=== PATIENT | female | born 1960 | race Caucasian/White ===

== ENCOUNTER → 2018-10-09 | Outpatient (CLI) | payer MEDICARE, OTHER | END | disposition home or self-care (01) | LOC: CFH 10:10 | PROVIDERS: ATTEND Nurse Practitioner Family | DX: Z12.31 Encounter for screening mammogram for malignant neoplasm of breast (principal); M16.0 Bilateral primary osteoarthritis of hip; Z85.3 Personal history of malignant neoplasm of breast | CPT/HCPCS: 72192; 77067 ==

== ENCOUNTER 2018-12-28 09:41 | Outpatient (CLI) | payer MEDICARE | END 2018-12-28 23:59 | disposition home or self-care (01) | LOC: CFH 09:41 | PROVIDERS: ATTEND Nurse Practitioner Family | DX: Z86.39 Personal history of other endocrine, nutritional and metabolic disease (principal) | CPT/HCPCS: 70490 ==

== ENCOUNTER → 2019-03-06 | Outpatient (CLI) | payer MEDICARE ==
[~2019-03-06] MED LIST: REGADENOSON 0.4 MG/5 ML SYRINGE ONE
== END | disposition home or self-care (01) ==
LOC: CFH 06:44
PROVIDERS: ATTEND Physician Assistant Medical
DX: I10 Essential (primary) hypertension (principal); Z95.0 Presence of cardiac pacemaker
CPT/HCPCS: 78452; 93017; 93306; A9502; J2785

== ENCOUNTER 2019-06-05 13:17 | Outpatient (CLI) | payer MEDICARE ==
[2019-06-05 14:40] LABS: BASOPHILS # (AUTO) 0.09 x10^3/uL (0-0.1); BASOPHILS % (AUTO) 1 % (0-1); EOSINOPHILS # (AUTO) 0.29 x10^3/uL (0-0.4); EOSINOPHILS % (AUTO) 3 % (1-7); LYMPHOCYTES % (AUTO) 21 % (22-44); MD NO; MEAN CORPUSCULAR HEMOGLOBIN 31.2 pg (27.0-34.8); MEAN CORPUSCULAR HGB CONC 32.5 g/dL (32.4-35.8); MEAN PLATELET VOLUME 9.1 fL (7.4-10.4); MONOCYTES # (AUTO) 0.54 x10^3/uL (0.2-0.8); MONOCYTES % (AUTO) 6 % (2-9); NEUTROPHILS # (AUTO) 6.32 x10^3/uL (1.8-6.8); NEUTROPHILS % (AUTO) 69 % (42-75); PLATELET COUNT 237 x10^3/uL (130-400); RED BLOOD COUNT 4.88 x10^6/uL (3.82-5.3); RED CELL DISTRIBUTION WIDTH 13.2 % (9.6-15.2)
[2019-06-05 14:44] LABS: PROTHROMBIN TIME 10.5 Seconds (9.6-11.5)
[2019-06-05 14:46] LABS: ALBUMIN 3.7 g/dL (3.4-5.0); ANION GAP 6 mmol/L (5-15); CALCIUM 9.2 mg/dL (8.5-10.1); CHLORIDE 107 mmol/L (98-107)
[2019-06-05 14:48] LABS: ALANINE AMINOTRANSFERASE 23 U/L (12-78); ALKALINE PHOSPHATASE 70 U/L (45-117); BILIRUBIN,TOTAL 0.4 mg/dL (0.2-1.0); CREATININE 0.95 mg/dL (0.55-1.02); TOTAL PROTEIN 7.1 g/dL (6.4-8.2)
[2019-06-05 14:50] LABS: HEMOGLOBIN A1C 5.6 % (4.2-6.3)
[2019-06-05] MEDS ORDERED: ROSU40TA PO (16:11)
[2019-06-05] MEDS ORDERED: DABI150C PO (16:11)
[2019-06-05] MEDS ORDERED: VENL75TA PO (16:11)
[2019-06-05] MEDS ORDERED: METO50TA82 PO (16:11)
[2019-06-05] MEDS ORDERED: SERT50TA28 PO (16:11)
[2019-06-05] MEDS ORDERED: LISI2.5T PO (16:11)
== END 2019-06-05 23:59 | disposition home or self-care (01) ==
LOC: STAR 13:17
PROVIDERS: ATTEND Orthopaedic Surgery
DX: Z01.818 Encounter for other preprocedural examination (principal); M16.11 Unilateral primary osteoarthritis, right hip; R94.31 Abnormal electrocardiogram [ECG] [EKG]
CPT/HCPCS: 36415; 80053; 83036; 85025; 85610; 85730; 87081; 87806; 93005; G0475

== ENCOUNTER 2019-06-11 05:45 | Inpatient (IN) | payer MEDICARE ==
[~2019-06-11] VITALS: Ht 165.1 cm; Wt 45.5 kg
[2019-06-12 14:48] VITALS: BP 91/58
== END 2019-06-12 18:15 | disposition home or self-care (01) | DRG 469 ==
LOC: ORIP 05:45 → 4NOR 09:45
PROVIDERS: ADMIT Orthopaedic Surgery; ATTEND Orthopaedic Surgery
PROC: 0SR903Z Replacement of Right Hip Joint with Ceramic Synthetic Substitute, Open Approach (ICD-10-PCS; principal; 2019-06-11)
DX: M16.11 Unilateral primary osteoarthritis, right hip (principal); R53.2 Functional quadriplegia; R71.0 Precipitous drop in hematocrit; I25.2 Old myocardial infarction; I10 Essential (primary) hypertension; I25.10 Atherosclerotic heart disease of native coronary artery without angina pectoris; K21.9 Gastro-esophageal reflux disease without esophagitis; G47.30 Sleep apnea, unspecified; F17.210 Nicotine dependence, cigarettes, uncomplicated; E78.5 Hyperlipidemia, unspecified; I48.91 Unspecified atrial fibrillation; F17.200 Nicotine dependence, unspecified, uncomplicated; Z88.0 Allergy status to penicillin; Z85.3 Personal history of malignant neoplasm of breast; Z95.0 Presence of cardiac pacemaker
CPT/HCPCS: 36415; 85014; 85018; 86850; 86900; C1713; G0378; J0171; J0690; J1100; J1170; J1885; J2405; J2704; J2795; J3010; J3480; C1776; J0330; J2370; J7040; J7120

== ENCOUNTER 2019-08-17 08:51 | Outpatient (CLI) | payer MEDICARE ==
[~2019-08-17 08:51] MED LIST changes: +DABI150C PO; +LISI2.5T PO; +METO50TA82 PO; -REGADENOSON 0.4 MG/5 ML SYRINGE ONE; +ROSU40TA PO; +SERT50TA28 PO; +VENL75TA PO
[2019-08-17] MEDS ORDERED: LIDOCAINE 1%, 20ML ONE (11:25)
[2019-08-17] MEDS ORDERED: LIDOCAINE 1%-EPI 1:100K, 20ML ONE (11:25)
[2019-08-17] MEDS ORDERED: SODIUM BICARBONATE 4.2%, 5ML ONE (11:25)
== END 2019-08-17 23:59 | disposition home or self-care (01) ==
LOC: CFH 08:51
PROVIDERS: ATTEND Radiology Diagnostic Radiology
DX: N63.20 Unspecified lump in the left breast, unspecified quadrant (principal); C50.912 Malignant neoplasm of unspecified site of left female breast; Z17.1 Estrogen receptor negative status [ER-]
CPT/HCPCS: 19083; 88305; 88360; 88361; J3490; 19285

== ENCOUNTER 2019-10-02 08:08 | Outpatient (CLI) | payer MEDICARE | END 2019-10-02 23:59 | disposition home or self-care (01) | LOC: CFH 08:08 | PROVIDERS: ATTEND Physical Medicine & Rehabilitation | DX: C50.912 Malignant neoplasm of unspecified site of left female breast (principal); R91.8 Other nonspecific abnormal finding of lung field | CPT/HCPCS: 76536; 78815; A9552 ==

== ENCOUNTER → 2019-10-05 | Outpatient (CLI) | payer MEDICARE | END | disposition home or self-care (01) | LOC: CFH 08:34 | PROVIDERS: ATTEND Physical Medicine & Rehabilitation | DX: M47.26 Other spondylosis with radiculopathy, lumbar region (principal); M48.061 Spinal stenosis, lumbar region without neurogenic claudication; M12.88 Other specific arthropathies, not elsewhere classified, other specified site; M89.78 Major osseous defect, other site; M25.78 Osteophyte, vertebrae; I50.9 Heart failure, unspecified; Z85.3 Personal history of malignant neoplasm of breast; F17.200 Nicotine dependence, unspecified, uncomplicated | CPT/HCPCS: 72131 ==

== ENCOUNTER 2019-10-15 08:56 | Day surgery (SDC) ==
[~2019-10-15] VITALS: Ht 165.1 cm; Wt 89.0 kg
[2019-10-15] MEDS ORDERED: SODIUM CHLORIDE 0.9% 1,000 ML IV SCH (09:42)
[2019-10-15] MEDS ORDERED: VANCOMYCIN PMX 1GM/200ML 200 ML IV ONE (10:00)
[2019-10-15 10:14] VITALS: BP 142/93
[2019-10-15] MEDS ORDERED: XARELTO PO (10:19)
[2019-10-15] MEDS ORDERED: MIDAZOLAM 1 MG/ML, 5ML ONE (10:38)
[2019-10-15] MEDS ORDERED: FENTANYL PF 100 MCG/2ML ONE (10:38)
[2019-10-15] MEDS ORDERED: FLUMAZENIL 0.1 MG/1 ML, 5ML ONE (10:38)
[2019-10-15] MEDS ORDERED: NALOXONE 1 MG/ML, 2ML ONE (10:39)
[2019-10-15] MEDS ORDERED: LIDOCAINE 1%, 20ML ONE (10:46)
[2019-10-15] MEDS ORDERED: LIDOCAINE 1%, 10ML ONE (10:46)
== END 2019-10-15 13:20 | disposition home or self-care (01) ==
LOC: OUT 08:56
PROVIDERS: ATTEND Internal Medicine
DX: Z45.2 Encounter for adjustment and management of vascular access device (principal); C50.912 Malignant neoplasm of unspecified site of left female breast; F19.90 Other psychoactive substance use, unspecified, uncomplicated; I10 Essential (primary) hypertension; E78.5 Hyperlipidemia, unspecified; I25.10 Atherosclerotic heart disease of native coronary artery without angina pectoris; K21.9 Gastro-esophageal reflux disease without esophagitis; F32.9 Major depressive disorder, single episode, unspecified; I48.91 Unspecified atrial fibrillation; G47.30 Sleep apnea, unspecified; Z95.0 Presence of cardiac pacemaker; Z88.0 Allergy status to penicillin; Z90.710 Acquired absence of both cervix and uterus; Z87.891 Personal history of nicotine dependence
CPT/HCPCS: 36561; 76937; 77001; 99156; 99157; C1788; C1894; J1642; J2250; J3010; J3370; J7030; J2310

== ENCOUNTER → 2020-01-18 | Outpatient (CLI) | payer MEDICARE ==
[~2020-01-18] MED LIST changes: +OMNIPAQUE 350 MG/ML, 100ML BOTTLE ONE; +XARELTO PO
== END | disposition home or self-care (01) ==
LOC: CFH 09:37
PROVIDERS: ATTEND Internal Medicine
DX: C50.912 Malignant neoplasm of unspecified site of left female breast (principal); C79.89 Secondary malignant neoplasm of other specified sites; D35.02 Benign neoplasm of left adrenal gland; I70.90 Unspecified atherosclerosis; R91.8 Other nonspecific abnormal finding of lung field; I70.0 Atherosclerosis of aorta; Z90.710 Acquired absence of both cervix and uterus
CPT/HCPCS: 71260; 74177; Q9967

== ENCOUNTER → 2021-02-04 | Outpatient (CLI) | payer MEDICARE ==
[~2021-02-04] MED LIST changes: -OMNIPAQUE 350 MG/ML, 100ML BOTTLE ONE
== END | disposition home or self-care (01) ==
LOC: ROC 07:22
PROVIDERS: ATTEND Radiology Radiation Oncology
DX: C50.912 Malignant neoplasm of unspecified site of left female breast (principal); I25.10 Atherosclerotic heart disease of native coronary artery without angina pectoris; K21.9 Gastro-esophageal reflux disease without esophagitis; E78.5 Hyperlipidemia, unspecified; F32.9 Major depressive disorder, single episode, unspecified; I48.91 Unspecified atrial fibrillation; I11.0 Hypertensive heart disease with heart failure; I50.9 Heart failure, unspecified; I25.2 Old myocardial infarction; Z87.891 Personal history of nicotine dependence; Z95.0 Presence of cardiac pacemaker; Z17.1 Estrogen receptor negative status [ER-]; Z90.710 Acquired absence of both cervix and uterus
CPT/HCPCS: 99214; G0463

== ENCOUNTER 2021-03-01 07:53 | Observation (INO) | payer MEDICARE ==
[~2021-03-01] VITALS: Ht 165.1 cm; Wt 95.3 kg
[~2021-03-01 07:53] MED LIST changes: -LISI2.5T PO; +LISI2.5T12 PO
[2021-03-01] MEDS ORDERED: SODIUM CHLORIDE FLUSH 10ML SYR IVF ONE (08:00)
[2021-03-01 08:25] LABS: BASOPHILS % (AUTO) 0 % (0-1); EOSINOPHILS % (AUTO) 0 % (1-7); LYMPHOCYTES % (AUTO) 6 % (22-44); MEAN CORPUSCULAR HEMOGLOBIN 32.8 pg (27.0-34.8); MEAN CORPUSCULAR HGB CONC 33.8 g/dL (32.4-35.8); MEAN PLATELET VOLUME 7.8 fL (7.4-10.4); MONOCYTES % (AUTO) 8 % (2-9); NEUTROPHILS % (AUTO) 86 % (42-75); PLATELET COUNT 155 x10^3/uL (130-400); RED BLOOD COUNT 4.49 x10^6/uL (3.82-5.3); RED CELL DISTRIBUTION WIDTH 14.6 % (9.6-15.2)
--- NOTE | 2021-03-01 08:30 | NUR ---
PT BIB [facility] FOR SUDDEN ONSET OF LT SIDED CP. 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 UPON ARRIVAL TO ER, PT STATES CP AT 2/10. PT PLACED ON MONITORS, EKG COMPLETED. PT AWAITING ERMD ASSESSMENT.
[2021-03-01 08:35] LABS: ALANINE AMINOTRANSFERASE 51 U/L (12-78); ANION GAP 7 mmol/L (5-15); CALCIUM 8.2 mg/dL (8.5-10.1); CHLORIDE 103 mmol/L (98-107)
[2021-03-01 08:39] LABS: ALKALINE PHOSPHATASE 49 U/L (45-117); BILIRUBIN,TOTAL 0.3 mg/dL (0.2-1.0); TOTAL PROTEIN 5.4 g/dL (6.4-8.2); TROPONIN I < 0.015 ng/mL (0.000-0.045)
[2021-03-01] MEDS ORDERED: DEXA1.5T26 PO (09:29)
[2021-03-01] MEDS ORDERED: GABA600T7 PO (09:30)
[2021-03-01] MEDS ORDERED: ROSU40TA PO (09:31)
--- NOTE | 2021-03-01 09:34 | NUR ---
PT RESTING IN BED, NO DISTRESS. PT TO BE [facility] ADMIT. PT AWARE OF POC. PT REMAINS ON MONITORS, VSS. PT DENIES CP CURRENTLY . CONT TO MONITOR.
[2021-03-01] MEDS ORDERED: ONDANSETRON 2MG/ML, 2ML IVPush PRN (10:00)
[2021-03-01] MEDS ORDERED: ENALAPRILAT 1.25 MG/ML, 2ML IVPush PRN (10:00)
[2021-03-01] MEDS ORDERED: BACLOFEN 10 MG TABLET PO PRN (10:00)
[2021-03-01] MEDS ORDERED: GABAPENTIN 300 MG CAPSULE PO PRN (10:00)
[2021-03-01] MEDS ORDERED: LABETALOL 5MG/ML, 20ML IVPush PRN (10:00)
[2021-03-01] MEDS ORDERED: BUTALB/APAP/CAFFEINE 50MG/325MG/40MG PO PRN (10:00)
[2021-03-01] MEDS ORDERED: HYDROmorphone 2 MG/ML, 1ML IVPush PRN (10:00)
[2021-03-01] MEDS ORDERED: ONDANSETRON ODT 4 MG PO PRN (10:00)
[2021-03-01] MEDS ORDERED: NITROGLYCERIN 0.4 MG BOTTLE (25 TABS) SL PRN (10:00)
--- NOTE | 2021-03-01 10:33 | NUR ---
REPORT GIVEN TO BRII CHURCHILL. PT OK TO TRANSFER TO FLOOR.
[2021-03-01 11:10] VITALS: BP 130/90
--- NOTE | 2021-03-01 11:12 | NUR ---
PT TRANSFERED TO [facility], HAS ALL OWN BELONGINGS UPON TRANSFER.
[2021-03-01] MEDS: ENOXAPARIN 40 MG/0.4 ML SQ SCH (11:53)
[2021-03-01 14:00] LABS: TROPONIN I < 0.015 ng/mL (0.000-0.045)
[2021-03-01 14:32] VITALS: BP 108/70
[2021-03-01] MEDS: DEXAMETHASONE 4 MG TABLET PO SCH ×2 (17:03→22:46)
[2021-03-01] MEDS: ACETAMINOPHEN 325 MG TABLET PO PRN (17:03)
[2021-03-01] MEDS ORDERED: CHLO25TA PO (17:39)
[2021-03-01] MEDS ORDERED: FLUT9.9S16 NAS (17:39)
[2021-03-01] MEDS ORDERED: ALBU90AE2 INH (18:11)
[2021-03-01] MEDS ORDERED: VENL75CA6 PO (18:11)
[2021-03-01] MEDS ORDERED: FLUT15.845 NAS (18:11)
[2021-03-01] MEDS ORDERED: PROC10TA2 PO (18:11)
[2021-03-01 20:20] LABS: TROPONIN I < 0.015 ng/mL (0.000-0.045)
[2021-03-01] MEDS ORDERED: MELATONIN 5 MG TABLET PO SCH (21:00)
[2021-03-01] MEDS ORDERED: ATORVASTATIN 80 MG TABLET PO SCH (21:00)
[2021-03-01 21:43] VITALS: BP 115/74
[2021-03-02 01:35] VITALS: BP 132/85
[2021-03-02 05:51] LABS: BASOPHILS % (AUTO) 0 % (0-1); EOSINOPHILS % (AUTO) 0 % (1-7); LYMPHOCYTES % (AUTO) 5 % (22-44); MEAN CORPUSCULAR HEMOGLOBIN 32.9 pg (27.0-34.8); MEAN CORPUSCULAR HGB CONC 33.9 g/dL (32.4-35.8); MEAN PLATELET VOLUME 8.3 fL (7.4-10.4); MONOCYTES % (AUTO) 4 % (2-9); NEUTROPHILS % (AUTO) 91 % (42-75); PLATELET COUNT 146 x10^3/uL (130-400); RED CELL DISTRIBUTION WIDTH 14.8 % (9.6-15.2)
[2021-03-02 06:04] LABS: CHLORIDE 105 mmol/L (98-107)
[2021-03-02 06:10] LABS: ANION GAP 3 mmol/L (5-15); CALCIUM 8.9 mg/dL (8.5-10.1); CREATININE 0.67 mg/dL (0.55-1.02)
[2021-03-02 06:57] VITALS: BP 128/91
[2021-03-02] MEDS ORDERED: REGADENOSON 0.4 MG/5 ML SYRINGE ONE (08:36)
[2021-03-02] MEDS ORDERED: SENNA/DOCUSATE TABLET PO SCH (09:00)
[2021-03-02] MEDS ORDERED: SERTRALINE 50MG TABLET PO SCH (09:00)
[2021-03-02] MEDS ORDERED: GABAPENTIN 300 MG CAPSULE PO SCH (09:00)
[2021-03-02] MEDS ORDERED: LISINOPRIL 5 MG TABLET PO SCH (09:00)
[2021-03-02] MEDS: DEXAMETHASONE 4 MG TABLET PO SCH (09:06)
[2021-03-02] MEDS: ENOXAPARIN 40 MG/0.4 ML SQ SCH (11:47)
[2021-03-02] MEDS: ACETAMINOPHEN 325 MG TABLET PO PRN (11:48)
[2021-03-02 12:25] VITALS: BP 114/76
== END 2021-03-02 14:00 | disposition left against medical advice (07) ==
LOC: EDBD 07:53 → ED 08:52 → MERGE 08:52 → INTOOBSV 09:15 → EDIP 09:15 → 5SO 10:44
PROVIDERS: ADMIT Hospitalist; ATTEND Hospitalist
DX: R07.89 Other chest pain (principal); I25.10 Atherosclerotic heart disease of native coronary artery without angina pectoris; I10 Essential (primary) hypertension; E78.5 Hyperlipidemia, unspecified; G62.9 Polyneuropathy, unspecified; C50.919 Malignant neoplasm of unspecified site of unspecified female breast; C79.31 Secondary malignant neoplasm of brain; F32.9 Major depressive disorder, single episode, unspecified; F17.210 Nicotine dependence, cigarettes, uncomplicated; I25.2 Old myocardial infarction; Z79.899 Other long term (current) drug therapy; Z88.0 Allergy status to penicillin; Z95.0 Presence of cardiac pacemaker
CPT/HCPCS: 36415; 71045; 78452; 80048; 80053; 83735; 84484; 85025; 85379; 93005; 93017; 96372; 97161; 99285; A9502; G0378; J1650; J2785

== ENCOUNTER → 2021-03-18 | Outpatient (CLI) | payer MEDICARE ==
[~2021-03-18] MED LIST changes: +ALBU90AE2 INH; +CHLO25TA PO; +DEXA1.5T26 PO; +FLUT15.845 NAS; +FLUT9.9S16 NAS; +GABA600T7 PO; +GADOTERATE 10 MMOL/20ML SYR ONE; +LISI2.5T PO; -LISI2.5T12 PO; +PROC10TA2 PO; +VENL75CA6 PO
== END | disposition home or self-care (01) ==
LOC: RAD 12:11
PROVIDERS: ATTEND Radiology Radiation Oncology
DX: C79.31 Secondary malignant neoplasm of brain (principal); M48.02 Spinal stenosis, cervical region; M47.812 Spondylosis without myelopathy or radiculopathy, cervical region; G31.89 Other specified degenerative diseases of nervous system
CPT/HCPCS: 70553; 72156; A9575

== ENCOUNTER → 2021-05-06 | Outpatient (CLI) | payer MEDICARE | END | disposition home or self-care (01) | LOC: RAD 12:16 | PROVIDERS: ATTEND Radiology Radiation Oncology | DX: C79.31 Secondary malignant neoplasm of brain (principal); G93.6 Cerebral edema; G93.89 Other specified disorders of brain | CPT/HCPCS: 70553; A9575 ==

== ENCOUNTER → 2021-06-12 | Outpatient (CLI) | payer MEDICARE ==
[~2021-06-12] MED LIST changes: -GADOTERATE 10 MMOL/20ML SYR ONE
== END | disposition home or self-care (01) ==
LOC: RAD 11:03
PROVIDERS: ATTEND Internal Medicine
DX: C50.912 Malignant neoplasm of unspecified site of left female breast (principal)

== ENCOUNTER → 2021-06-22 | Outpatient (CLI) | payer MEDICARE ==
[~2021-06-22] MED LIST changes: +GADOTERATE 10 MMOL/20ML SYR ONE
== END | disposition home or self-care (01) ==
LOC: RAD 10:22
PROVIDERS: ATTEND Radiology Radiation Oncology
DX: C79.31 Secondary malignant neoplasm of brain (principal)
CPT/HCPCS: 70553; A9575

== ENCOUNTER → 2021-06-23 | Outpatient (CLI) | payer MEDICARE ==
[~2021-06-23] MED LIST changes: -GADOTERATE 10 MMOL/20ML SYR ONE
== END | disposition home or self-care (01) ==
LOC: ROC 10:30
PROVIDERS: ATTEND Radiology Radiation Oncology
DX: Z08 Encounter for follow-up examination after completed treatment for malignant neoplasm (principal); Z85.841 Personal history of malignant neoplasm of brain
CPT/HCPCS: 99213; G0463

== ENCOUNTER 2021-06-30 10:32 | Outpatient (CLI) | payer MEDICARE ==
[~2021-06-30 10:32] MED LIST changes: -LISI2.5T PO; +LISI2.5T12 PO
== END 2021-06-30 23:59 | disposition home or self-care (01) ==
LOC: ROC 10:32
PROVIDERS: ATTEND Radiology Radiation Oncology
DX: Z02.9 Encounter for administrative examinations, unspecified (principal)